=== PATIENT | female | born 1985 | race Caucasian/White ===

== ENCOUNTER 2019-06-14 19:09 | Emergency (ER) | payer OTHER, SELFPAY ==
[2019-06-14 19:23] VITALS: BP 118/44; PULSE 91; RESP 20; TEMP 37.6; O2SAT 99
--- NOTE | 2019-06-14 19:24 | ED.UPPEXIN ---
HPI - Extremity Injury (Upper) General Chief Complaint: Upper Respiratory Infection Stated Complaint: cold symptoms /chest pains/SOB History of Present Illness HPI narrative: This is a 33-year-old female comes in complaining with some shortness of breath coughing body aches and malaise with fatigue. Patient states is been going on for approximately 2 days she has been exposed to influenza. Patient is currently half pack a day smoker. Patient denies any nausea vomiting and/or diarrhea at this time. Related Data Allergies Allergy/AdvReac Type Severity Reaction Status Date / Time No Known Allergies Allergy Verified 03/10/19 14:41 Review of Systems Review of Systems: Narrative: CONSTITUTIONAL: REPORTS fever, chills, or sweats. EYES: Denies visual changes, redness, or discharge. ENT: REPORTS rhinorrhea, congestion, sore throat, or otalgia. CARDIOVASCULAR:Denies chest pain, palpitations, or edema. RESPIRATORY: REPORTS cough or dyspnea. GASTROINTESTINAL: Denies abdominal pain, nausea, vomiting, or diarrhea. GENITOURINARY: Denies dysuria or hematuria. SKIN:[Denies rash or itching. MUSCULOSKELETAL:Denies back pain, joint pain, or myalgia. NEUROLOGIC: Denies headache, numbness, or weakness. PSYCHIATRIC:Denies anxiety or depression PMFSH Surgical History Surgical History (Updated 03/16/19 @ 11:13 by Ani Hogan NP) H/O section History of breast augmentation Social History Social History (Updated 03/16/19 @ 11:14 by Ani Hogan NP) Smoking packs per day: 0.5 Smoking cigarettes per day: 10.0 Years smoked: 20 Smoking pack-years: 10.00 Smoking status: Current every day smoker Gender identity (if verbalized by the patient): Female Comments At time as signature, I have reviewed and agree with nursing past medical, social, surgical and family history. Please see nursing chart for further information. There is no relevant family history pertinent to the presenting complaint. Exam Narrative: Exam Narrative: GENERAL:Well-appearing, well-nourished, and in no acute distress. HEAD:Normocephalic, atraumatic. EYES: PERRLA and EOMI. ENT: Nares clear, no rhinorrhea or epistaxis. Mucous membranes moist. NECK: Supple. CHEST: WHEEZES THROUGHOUT COUGHING YELLOW MUCUS No respiratory distress. HEART: Regular rate and rhythm. No murmur heard. Normal peripheral pulses. ABDOMEN: Soft, nontender, nondistended, normal active bowel sounds. EXTREMITIES: Normal range of motion. No edema. SKIN: Warm, dry, no rash. NEURO: No focal deficits. Alert and oriented x3. NEGATIVE FOR INFLUENZA , hAD A LONG CONVERSATION WITH PATIENT ABOUT QUITTING SMOKING AND THE BENFITS. pATIENT DENIES TAKING ANYTHING FOR HER SYMPTOM DUE TO SHE DOES NOT LIKE TO TAKE MEDICATION. On active meeting him to save the Course Vital Signs Vital signs: Vital Signs Temperature 99.6 F 06/14/19 19:23 Pulse Rate 91 06/14/19 19:23 Respiratory Rate 20 06/14/19 19:23 Blood Pressure 118/44 L 06/14/19 19:23 Pulse Oximetry 99 06/14/19 19:23 Temperature 99.6 F 06/14/19 19:23 Pulse Rate 91 06/14/19 19:23 Respiratory Rate 20 06/14/19 19:23 Blood Pressure 118/44 L 06/14/19 19:23 Pulse Oximetry 99 06/14/19 19:23 Discharge Plan Discharge Clinical Impression: Cough, Bronchitis, Acute bronchospasm Patient Disposition: Home, Self-Care Condition: Stable Instructions: Antibiotic Form, How to Stop Smoking (ED), Chronic Bronchitis (ED), Bronchospasm (ED), Wheezing (ED) Prescriptions: New amoxicillin 500 mg capsule 500 mg PO Q12H 10 Days Qty: 20 RF: 0 methylprednisolone [Medrol (Richard)] 4 mg tablets,dose pack See Rx Instructions .ROUTE .COMPLEX Qty: 21 RF: 0 albuterol sulfate 90 mcg/actuation HFA aerosol inhaler 2 puff INHALATION QID PRN (Reason: shortness of breath or wheezing) Qty: 8.5 RF: 0 Follow-up/Referrals: UNKNOWN,DOCTOR [Primary Care Provider] - Stand Alone Forms: Work/Scho
[2019-06-14] MEDS: ALBUTEROL SULFATE NEB 2.5 MG/3 ML INH INHALATION (19:47)
== END 2019-06-14 20:08 | disposition home or self-care (01) ==
PROVIDERS: Emergency Provider Nurse Practitioner Family
DX: R05 Cough (principal); J40 Bronchitis, not specified as acute or chronic; J98.01 Acute bronchospasm; F17.210 Nicotine dependence, cigarettes, uncomplicated
CPT/HCPCS: 87804; 94640; 99213; G0463

== ENCOUNTER 2019-12-04 09:32 | Emergency (ER) | payer OTHER, SELFPAY ==
--- NOTE | ~2019-12-04 | XR_ITS ---
EXAMINATION: XR chest 2V DATE: 12/04/2019 10:16 INDICATION: Cough and pain with deep inspiration TECHNIQUE: frontal and lateral views of the chest were obtained. COMPARISON: Chest radiograph dated 03/10/2019 FINDINGS: The lungs remain clear with no focal airspace opacities, pulmonary edema, pleural effusion or pneumot horax. The cardiomediastinal silhouette is normal. Bilateral breast implants. Chronic minimal anterio r wedging of a midthoracic vertebral body likely T6. IMPRESSION: 1. No acute cardiopulmonary disease. Reviewed, dictated and finalized at location A.
[2019-12-04 09:37] VITALS: BP 110/66; PULSE 76; RESP 14; TEMP 37.3; O2SAT 97
--- NOTE | 2019-12-04 10:06 | ED.URI ---
HPI - URI/Sore Throat General Chief Complaint: Upper Respiratory Infection Stated Complaint: chest congestion/ear pain and pressure Time Seen by Provider: 12/04/19 10:06 Source: patient Mode of arrival: ambulatory Limitations: no limitations History of Present Illness HPI Narrative: Marlen Powell is a 34 yo female with no PMH who comes to express care with increasing congestion over the last 2 weeks. States she started with a sore throat and ear pain 2 weeks ago but yesterday had a temperature 100.1 and on able to take deep breaths because of pain. Generally smokes pack cigarettes a day Related Data Allergies Allergy/AdvReac Type Severity Reaction Status Date / Time No Known Allergies Allergy Verified 03/10/19 14:41 Review of Systems Review of Systems: Narrative: CONSTITUTIONAL: Denies fever, chills, sweats. EYES: Denies visual changes, redness, discharge. ENT: Denies rhinorrhea, congestion, has sore throat, has bilateral otalgia. CARDIOVASCULAR: Denies chest pain, palpitations, edema. RESPIRATORY: Denies dyspnea, has wheezing, has cough GASTROINTESTINAL: Denies abdominal pain, nausea, vomiting, diarrhea. GENITOURINARY: Denies dysuria, hematuria, abnormal discharge SKIN: Denies rash or itching. NEUROLOGIC: Denies numbness, or focal weakness. PSYCHIATRIC: Denies anxiety or depression. PMFSH Past Medical History Medical History (Updated 12/04/19 @ 10:19 by Aparna Elder CNP) No active medical problems Surgical History Surgical History H/O section History of breast augmentation Family History Family History Other No active medical problems Social History Social History Smoking packs per day: 0.5 Smoking cigarettes per day: 10.0 Years smoked: 20 Smoking pack-years: 10.00 Smoking status: Current every day smoker Gender identity (if verbalized by the patient): Female Comments At time of signature, I agree with nursing past medical, surgical, social and family history. There is no relevant family history pertinent to the presenting complaint. Exam Narrative: Exam Narrative: GENERAL: This is a well-nourished, well-developed patient, in mild distress. HEAD: normocephalic, atraumatic. EYES: Sclera clear/white. Vision is grossly intact. EARS: External ears normal, auditory canals clear and without drainage, bilateral bulging TMs . Hearing grossly intact. NOSE: External nose normal without nasal discharge, nares without redness, no rhinorrhea. THROAT: Mucous membranes moist, posterior pharynx erythema without exudate NECK: Neck supple, non-tender CARDIOVASCULAR: Regular rate and rhythm without murmurs, gallops, or rubs. RESPIRATORY: Diminished to auscultation. Breath sounds equal bilaterally. has occ wheezes, no rales, or occ .rhonchi. GASTROINTESTINAL: Abdomen soft, non-tender, SKIN: warm, intact with no suspicious lesions or rash, good texture and turgor. NEURO: awake, alert, and oriented to person, place and time. There were no obvious focal neurologic abnormalities. Steady gait EXTREMITIES: Normal range of motion. BACK: Nontender without deformity Course Course Emergency Course: Chest Xray - results Started on claritin, zithromax, albuterol inhaler Vital Signs Vital signs: Vital Signs Temperature 99.1 F 12/04/19 09:37 Pulse Rate 76 12/04/19 09:37 Respiratory Rate 14 12/04/19 09:37 Blood Pressure 110/66 12/04/19 09:37 Pulse Oximetry 97 12/04/19 09:37 Temperature 99.1 F 12/04/19 09:37 Pulse Rate 76 12/04/19 09:37 Respiratory Rate 14 12/04/19 09:37 Blood Pressure 110/66 12/04/19 09:37 Pulse Oximetry 97 12/04/19 09:37 Discharge Plan Discharge Clinical Impression: Cough Patient Disposition: Home, Self-Care Condition: Stable Instructions: Antibiotic Fo
== END 2019-12-04 10:38 | disposition home or self-care (01) ==
PROVIDERS: Emergency Provider Nurse Practitioner
DX: R05 Cough (principal); F17.210 Nicotine dependence, cigarettes, uncomplicated
CPT/HCPCS: 71046; 99213; G0463

== ENCOUNTER 2021-03-23 17:53 | Emergency (ER) | payer OTHER, SELFPAY ==
[2021-03-23 18:00] VITALS: BP 130/85; PULSE 60; RESP 18; TEMP 36.7; O2SAT 99
--- NOTE | 2021-03-23 18:04 | ED.ABDPAIN ---
HPI - Abdominal Pain General Chief Complaint: Urogenital-Female Stated Complaint: poss bladder or kidney inf Time Seen by Provider: 03/23/21 18:04 Source: patient and RN notes reviewed History of Present Illness HPI narrative: Patient is a 35-year-old female who presents the urgent care with complaints of a possible UTI. Patient states that she has had lower left pelvic pain radiating to the low back for the last 4 days, dark urine, low-grade fever, scant blood in the urine, and tingling to the pelvic region . Patient states that she has been using naproxen without much relief. States that she does have a history of kidney stones but it has been 7 years since then. Denies of any nausea or vomiting. No other acute complaints. No acute distress noted. Patient aware of the plan of care. Some parts of this dictation were generated by voice recognition software and may contain typographical and/or grammatical inaccuracies. Related Data Allergies Allergy/AdvReac Type Severity Reaction Status Date / Time No Known Allergies Allergy Verified 03/23/21 18:00 Review of Systems Review of Systems: CONSTITUTIONAL: Denies fever, chills, or sweats. EYES: Denies visual changes, redness, or discharge. ENT: Denies rhinorrhea, congestion, sore throat, or otalgia. CARDIOVASCULAR: Denies chest pain, palpitations, or edema. RESPIRATORY: Denies cough or dyspnea. GASTROINTESTINAL: Denies abdominal pain, nausea, vomiting, or diarrhea. GENITOURINARY: Reports of dysuria, suprapubic pain radiating to the low back, hematuria SKIN: Denies rash or itching. MUSCULOSKELETAL: Denies back pain, joint pain, or myalgia. NEUROLOGIC: Denies headache, numbness, or weakness. All other systems reviewed are negative, except as documented in HPI. [facility] Past Medical History Medical History (Updated 03/23/21 @ 18:20 by MARCIN Vaughan) No active medical problems Surgical History Surgical History H/O section History of breast augmentation Family History Family History Other No active medical problems Social History Social History Smoking packs per day: 0.5 Smoking cigarettes per day: 10.0 Years smoked: 20 Smoking pack-years: 10.00 Smoking status: Current every day smoker Gender identity (if verbalized by the patient): Female Comments At the time of my signature, I reviewed and agree with the nursing past medical, surgical, social, and family history. There is no relevant family history pertinent to the patient complaint. Exam Narrative: GENERAL: This is a well-nourished, well-developed patient, in no apparent distress. HEAD: normocephalic, atraumatic. EYES: PERRL. Sclera clear/white. Vision is grossly intact. EARS: External ears normal NOSE: External nose normal with no obvious nasal discharge, nares without redness, no rhinorrhea. THROAT: Mucous membranes moist NECK: Neck supple CARDIOVASCULAR: Regular rate and rhythm without murmurs, gallops, or rubs. RESPIRATORY: Clear to auscultation. Breath sounds equal bilaterally. No wheezes, rales, or rhonchi. GASTROINTESTINAL: Abdomen soft, mild to moderate suprapubic/left lower abdominal tenderness, nondistended. SKIN: warm, intact with no suspicious lesions or rash, good texture and turgor. NEURO: awake, alert, and oriented to person, place and time. There were no obvious focal neurologic abnormalities. EXTREMITIES: No clubbing, cyanosis, or edema. BACK: Moderate left-sided CVA tenderness Course Vital Signs Vital signs: Vital Signs Temperature 98.1 F 03/23/21 18:00 Pulse Rate 60 03/23/21 18:00 Respiratory Rate 18 03/23/21 18:00 Blood Pressure 130/85 03/23/21 18:00 Pulse Oximetry 99 03/23/21 18:00 Temperature 98.1 F 03/23/21 18:00 Pulse Rate 60 03/23/21 18:00 Respiratory Rate 18
== END 2021-03-23 18:25 | disposition home or self-care (01) ==
PROVIDERS: Emergency Provider Nurse Practitioner Family
DX: N39.0 Urinary tract infection, site not specified (principal); F17.210 Nicotine dependence, cigarettes, uncomplicated
CPT/HCPCS: 81003; 87086; 99213; G0463